=== PATIENT | male | born 1990 | race African-American/Black ===

== ENCOUNTER 2022-07-24 17:09 | Emergency (ER) | payer MEDICAID ==
[~2022-07-24] VITALS: Ht 177.8 cm; Wt 84.0 kg
[~2022-07-24 17:09] MED LIST: ADVAIR; ALBUTEROL; ATROVENT
[2022-07-24 17:25] VITALS: BP 133/84
[2022-07-24] MEDS ORDERED: IBUPROFEN 800MG TABLET PO ONE (17:45)
[2022-07-24] MEDS ORDERED: OLANZAPINE 10MG TABLET PO SCH (17:45)
[2022-07-24] MEDS ORDERED: BACITRACIN/POLYMYXIN B SULFATE OINT 15GM TOP ONE (17:45)
[2022-07-24] MEDS ORDERED: LORAZEPAM 1MG TABLET PO ONE (17:45)
== END 2022-07-24 17:58 | disposition home or self-care (01) ==
LOC: ER 17:09
DX: F22 Delusional disorders (principal); J45.909 Unspecified asthma, uncomplicated; F31.9 Bipolar disorder, unspecified; F20.9 Schizophrenia, unspecified
CPT/HCPCS: 99283

== ENCOUNTER 2022-09-10 21:22 | Emergency (ER) | payer MEDICAID ==
[~2022-09-10] VITALS: Ht 185.4 cm; Wt 95.3 kg
[2022-09-10 21:31] VITALS: BP 123/82
== END 2022-09-10 22:20 | disposition left against medical advice (07) ==
LOC: ER 21:30
DX: Z53.21 Procedure and treatment not carried out due to patient leaving prior to being seen by health care provider (principal)
CPT/HCPCS: 93005; 99281

== ENCOUNTER 2025-02-06 10:45 | Inpatient (IN) | payer MEDICAID ==
[~2025-02-06] VITALS: Ht 365.8 cm; Wt 93.0 kg
[2025-02-06 11:27] LABS: BASOPHILS % 0.9 % (0.0-2.0); EOSINOPHILS % 1.0 % (0.0-5.0); HEMATOCRIT. 39.7 % (42.0-52.0); HEMOGLOBIN. 13.3 g/dL (14.0-18.0); LYMPHOCYTES % 23.9 % (20.0-50.0); MEAN PLATELET VOLUME 7.9 fl (7.4-10.4); MONOCYTES % 10.2 % (2.0-8.0); NEUTROPHILS % 64.0 % (40.0-76.0); PLATELET 257 x1000/uL (130-400); RED BLOOD CELL COUNT 4.31 mill/uL (4.7-6.1); RED CELL DISTRIBUTION WIDTH 14.6 % (11.6-14.6)
[2025-02-06 11:42] LABS: CREATININE 1.9 mg/dL (0.6-1.3); UREA NITROGEN BLOOD 20 mg/dL (9-23)
[2025-02-06 13:20] LABS: CLARITY URINE TURBID (CLEAR); COLOR URINE DARK YELLOW (YELLOW); GLUCOSE URINE NEGATIVE (NEGATIVE); KETONES URINE 2+ (NEGATIVE); LEUKOCYTE ESTERASE URINE NEGATIVE (NEGATIVE); NITRITE URINE NEGATIVE (NEGATIVE); OCCULT BLOOD URINE NEGATIVE (NEGATIVE); PH URINE 6.0 (4.5-8.0); PROTEIN URINE 1+ (NEGATIVE); SPECIFIC GRAVITY URINE 1.024 (1.005-1.030); UROBILINOGEN URINE 1.0 E.U./dL (0.2-1.0)
[2025-02-06 13:31] LABS: BACTERIA URINE 1+; HYALINE CASTS URINE 0-5 /lpf; RBC URINE 0-2 /hpf (0-2); SQUAMOUS EPITHELIAL CELL URINE NONE SEEN /lpf (RARE/1+); YEAST URINE NONE SEEN
[2025-02-06] MEDS: SODIUM CHLORIDE 0.9% 1,000 ML IV ONE (13:34)
[2025-02-06] MEDS: OLANZAPINE 10 MG/VIAL IM ONE (13:35)
[2025-02-06] MEDS: KCL 10MEQ/50ML PREMIX 50 ML IV SCH (13:35)
[2025-02-06] MEDS: LORAZEPAM 2MG/ML UD SYRINGE IM NR (13:35)
[2025-02-06 13:40] LABS: *AMPHETAMINES SCREEN URINE NEGATIVE (NEGATIVE); *BARBITURATES SCREEN URINE NEGATIVE (NEGATIVE); *BENZODIAZEPINES SCREEN URINE PRESUMPTIVE POSITIVE (NEGATIVE); *COCAINE SCREEN URINE NEGATIVE (NEGATIVE); CANNABINOID URINE SCREEN PRESUMPTIVE POSITIVE (NEGATIVE); ECSTASY MDMA SCREEN URINE NEGATIVE (NEGATIVE); METHADONE URINE SCREEN NEGATIVE (NEGATIVE); OPIATES URINE SCREEN NEGATIVE (NEGATIVE); PHENCYCLIDINE URINE SCREEN NEGATIVE (NEGATIVE)
[2025-02-06 16:22] VITALS: O2SAT 100
[2025-02-06] MEDS ORDERED: ACETAMINOPHEN 325MG TABLET PO PRN (16:45)
[2025-02-06] MEDS ORDERED: ONDANSETRON HCL 4MG/2ML INJ IV PRN (16:45)
[2025-02-06] MEDS: SODIUM CHLORIDE 0.9% 1,000 ML IV SCH (16:58)
[2025-02-06] MEDS ORDERED: POTASSIUM CHLORIDE 40 MEQ in DEXT 5% WATER 230 ML IV ONE ×2 (17:00→21:00)
[2025-02-06 18:00] VITALS: BP 93/54; PULSE 97; RESP 14; TEMP 36.4; O2SAT 100
[2025-02-06] MEDS ORDERED: HALOPERIDOL LACTATE 5MG/ML VIAL IM PRN (18:00)
[2025-02-06] MEDS ORDERED: IPRATROPIUM/ALBUTEROL 0.5-3(2.5)MG/3ML NEB HHN PRN (18:45)
[2025-02-06] MEDS: PANTOPRAZOLE 40MG DR TABLET PO SCH (19:22)
[2025-02-06 20:00] VITALS: BP 102/47; PULSE 74; RESP 20; TEMP 36.3; O2SAT 97
[2025-02-06] MEDS: KCL 20MEQ/100ML X 2 FOR TOTAL KCL 40MEQ/200ML IV SCH (21:15)
[2025-02-06 21:58] VITALS: BP 102/47; PULSE 74; RESP 20; TEMP 36.3068
[2025-02-07] VITALS: BP 119/55; PULSE 104; RESP 20; TEMP 36.3; O2SAT 97
[2025-02-07] MEDS: POTASSIUM CHLORIDE 20MEQ/PACKET PO NR (02:35)
[2025-02-07 04:00] VITALS: BP 119/62; PULSE 102; RESP 20; TEMP 36.5; O2SAT 96
[2025-02-07] MEDS: LORAZEPAM 0.5MG TABLET PO PRN (06:31)
[2025-02-07 08:00] VITALS: BP 127/83; PULSE 119; RESP 20; TEMP 36.6; O2SAT 97
[2025-02-07] MEDS: OLANZAPINE 5MG TABLET ODT PO SCH (11:00)
[2025-02-07 12:47] VITALS: BP 127/83; PULSE 119; RESP 20; TEMP 97.8
== END 2025-02-07 12:55 | disposition home or self-care (01) | DRG 469 ==
LOC: ER 10:45 → 6WST 13:40 → EDBEDREQ 13:56 → ENRESERV 16:58
PROVIDERS: ADMIT Hospitalist; ATTEND Hospitalist
DX: N17.9 Acute kidney failure, unspecified (principal); F29 Unspecified psychosis not due to a substance or known physiological condition; E87.6 Hypokalemia; Z78.1 Physical restraint status; K21.9 Gastro-esophageal reflux disease without esophagitis; Z20.822 Contact with and (suspected) exposure to COVID-19; N14.19 Nephropathy induced by other drugs, medicaments and biological substances; F13.10 Sedative, hypnotic or anxiolytic abuse, uncomplicated; F20.9 Schizophrenia, unspecified; J45.909 Unspecified asthma, uncomplicated; F31.9 Bipolar disorder, unspecified; R61 Generalized hyperhidrosis; R41.0 Disorientation, unspecified; F12.10 Cannabis abuse, uncomplicated; Z79.899 Other long term (current) drug therapy
CPT/HCPCS: 36415; 80048; 80305; 80307; 80320; 80329; 81003; 85025; 87426; 93005; 96360; 96372; 99291; A4606; J2060; J3480; J3490; J7030; G0480